=== PATIENT | male | born 1975 | race African-American/Black ===

== ENCOUNTER 2023-04-10 07:16 | Emergency (ER) | payer OTHER, SELFPAY ==
[2023-04-10 07:18] VITALS: BP 155/108
--- NOTE | 2023-04-10 07:48 | ED.GENMED ---
History of Present Illness
General
Chief Complaint: Musculo-Skeletal Complaint
Source: patient
Exam Limitations: none
Time Seen by Provider: 04/10/23 07:22
Nursing documentation reviewed up to this point in time: agreed with
Travel History
Have you had any contact with someone who has COVID-19?: No
Do you have any symptoms of coronavirus? Fever > 100 degrees, chills, cough, shortness of breath, sore throat, loss of taste or smell, muscle aches, or headache?: No
History of Present Illness
History of Present Illness:
Patient is a 47-year-old who presents today with complaints of right shoulder pain since . He was sleeping on the side and woke up with pain. Pain has been persistent since that he did go to urgent care and was given Medrol Dosepak and
sinus with calcific tendinitis but complains of persistent pain not being able to sleep was a prompted him to come to the ER.
Patient is right-hand dominant. 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 He denies any fever chills redness to the area. In addition to
Medrol Dosepak he has taken Tylenol for pain which is not relieving his symptoms.
Review of Systems
Review of Systems
Allergies reviewed?: Yes
Other source history: family
All Other Systems: ROS reviewed and negative except as documented in HPI and ROS
Constitutional: Reports no symptoms; Denies fever, fatigue or chills
Respiratory: Reports no symptoms
Cardiac: Reports no symptoms
ABD/GI: Reports no symptoms
Musculoskeletal: Reports other (right shoulder pain )
Skin: Reports no symptoms
Neurological: Reports no symptoms
Psychiatric: Reports no symptoms
Phy Exam
General Physical Exam
General Presentation: no apparent distress
General age: appears stated age
General Skin: warm and dry
General Habitus: normal
General Mental: alert
Neurological Exam
Neurological Exam: alert and oriented x3
Musculoskeletal Exam
Musculoskeletal Exam: other (normal inspection to right upper extremity no swelling or redness to shoulder pain with full abduction, strong distal pulses normal distal cap refill and normal diesel engine mechanic strength )
Course
Orders/Labs/Results
Orders:
Orders
04/10/23 07:47
Dexamethasone Sod Phosphate [Decadron] 10 mg IM NOW STA
Hydrocodone 5/APAP 325 [[place] 5/325] 1 tablet PO NOW STA
04/10/23 07:48
Shoulder, Right, Trauma [CR Shoulder, Trauma - Right] Urgent
Comment:
Reason For Exam: pain dec rom
04/10/23 08:02
Sling Right-Treatment ONCE
Vital Signs
Initial and Last Documented VS:
Initial Vital Signs
Temp Pulse Resp BP Pulse Ox
98.8 F 107 18 155/108 97
04/10/23 07:18 04/10/23 07:18 04/10/23 07:18 04/10/23 07:18 04/10/23 07:18
Last Documented Vital Signs
Temp Pulse Resp BP Pulse Ox
98.8 F 107 18 155/108 97
04/10/23 07:18 04/10/23 07:18 04/10/23 07:18 04/10/23 07:18 04/10/23 07:18
MDM/Problems Addressed
Differential Diagnosis Includes:
Not limited to calcific tendinitis rotator cuff injury sprain strain, labral tear
MDM/Problems Addressed:
X-ray done here consistent with calcific tendinitis also concern for labral pathology. Will DC with sling with Ortho follow-up. Patient has steroids from urgent care discussed with patient importance of continuing steroids however additional pain
medication was sent to pharmacy to take as needed. Patient was instructed to range his shoulder several times a day call orthopedics tomorrow return if any worsening of symptoms.
*Critical Care Note
Total Time (30-74mins, 75-104mins- exclusive of procedures): Not Applicable
ED Attending Note
-
Portions of this chart may have been created with voice recognition software.� Occasional wrong word or��sound alike� substitutions may have occurred due to the inherent limitations of voice recognition software.
Discharge Plan
Departure
Patient Disposition: Home (Routine Discharge)
Date of Disposition: 04/10/23
Time of Disposition: 08:57
Patient with high blood pressure during this ER visit?: Yes
Condition: Fair
Covid-19: Not Applicable
Discharge Problem:
Acute shoulder pain
Instructions: Shoulder Pain (DC), How to Use a Shoulder Sling, BLOOD PRESSURE
Prescriptions:
New
hydrocodone-acetaminophen 5-300 mg tablet
1 tab PO Q6H PRN (Reason: Pain) Qty: 10 0RF
Referrals:
Derik Mcdaniel MD [Family Provider] -
Ramez Hall MD [Active] -
Activity Restrictions/Additional Instructions:
As discussed a prescription for pain medication was sent to your pharmacy.
Continue to take steroids as previously prescribed discussed. You may wear sling for support but be sure to remove sling and do gentle range of motion exercises several times a day.
Call orthopedics tomorrow for an appointment next several days. It is likely that you may need additional imaging
return if any worsening of symptoms.
Interventions
Interventions:
*Risk Screen - Suicide Last Done: 04/10/23 08:08
*General Assessment Last Done: 04/10/23 08:07
*Neglect/Abuse Screening Last Done: 04/10/23 08:07
*ED COVID-19 Vaccine History Last Done: 04/10/23 07:18
ED-Musculoskeletal Assessment Last Done: 04/10/23 08:08
[2023-04-10] MEDS: NORCO 5/325 1 TABLET PO (08:03)
[2023-04-10] MEDS: DECADRON 10 MG IM (08:04)
== END 2023-04-10 10:15 | disposition home or self-care (01) ==
LOC: EMR 07:16
PROVIDERS: EMERGENCY PHYSICIAN Emergency Medicine; FAMILY PHYSICIAN Internal Medicine
DX: M25.511 Pain in right shoulder (principal)
CPT/HCPCS: 99283; 96372; 73030

== ENCOUNTER 2023-09-25 22:41 | Emergency (ER) | payer SELFPAY ==
[2023-09-25 22:44] VITALS: BP 166/104
--- NOTE | 2023-09-25 23:40 | ED.GENMED ---
History of Present Illness
General
Chief Complaint: Skin Surface Trauma
Source: patient
Exam Limitations: none
Time Seen by Provider: 09/25/23 23:23
History of Present Illness
History of Present Illness:
This is a 47 year old male that comes in with c/o right great toe nail coming of and a finger check. States that he went to as his finger was swollen States that they opened the base of his finger and he just wanted this checked. States that also
today he thinks his great toe on the right the nail came off. States that he had a hand truck come back on his toe about a month ago. Denies any fever, chills, chest pain, SOB, abd pain, nausea, vomiting, diarrhea, headache, dizziness, urinary
burning.
Past History
Past History
ED Past Medical History: Asthma, HTN and Other (pancreatitis)
ED Past Surgical History: Negative Appendectomy, Bowel resection, Cardiac or Cholecystectomy
Social History
Tobacco: Non-smoker
Alcohol: Occasional
Drug: None
Personal: Single
Living: alone
Employment: Employed
Review of Systems
Review of Systems
All Other Systems: ROS reviewed and negative except as documented in HPI and ROS
Constitutional: Reports no symptoms; Denies fever or chills
EENT: Reports no symptoms
Respiratory: Reports no symptoms; Denies cough or trouble breathing
Cardiac: Reports no symptoms; Denies chest pain
ABD/GI: Reports no symptoms; Denies abdominal pain, nausea, vomiting or diarrhea
: Reports no symptoms; Denies dysuria, frequency or urgency
Musculoskeletal: Reports other (left thumb check and right great toenail check)
Skin: Reports no symptoms
Neurological: Reports no symptoms; Denies dizzy or headache
Psychiatric: Reports no symptoms
Phy Exam
General Physical Exam
General Presentation: well appearing (Patient was sleeping upon entering the room. ) and no apparent distress
General age: appears stated age
General Skin: warm and dry
General Habitus: normal
General Mental: alert
General Hydration: appears well hydrated
Eye Exam
Eye Exam: EOMI
Musculoskeletal Exam
Musculoskeletal Exam: other (Left thumb wound clean and dry. No redness or swelling noted. Right great toe nail is holding on slightly. Will leave in place and have patient follow up with the Assistant Case Manager. )
Skin Exam
Skin Exam: normal color, warm/dry, no rash and no petechia
Psychiatric Exam
Psychiatric Exam: normal mood/affect
Course
Vital Signs
Initial and Last Documented VS:
Initial Vital Signs
Temp Pulse Resp BP Pulse Ox
97.8 F 90 18 166/104 98
09/25/23 22:44 09/25/23 22:44 09/25/23 22:44 09/25/23 22:44 09/25/23 22:44
Last Documented Vital Signs
Temp Pulse Resp BP Pulse Ox
97.8 F 90 18 166/104 98
09/25/23 22:44 09/25/23 22:44 09/25/23 22:44 09/25/23 22:44 09/25/23 22:44
MDM/Problems Addressed
Differential Diagnosis Includes:
Wound check, Great toenail falling off
MDM/Problems Addressed:
This is a 47 year old male that comes in with c/o his right great toe nail coming off and would a wound check on his left Thumb.
Explained to patient his Finger is not infected and this is healing. As for his toenail. Will attempt to leave what is remaining in place to help keep the nail bed open. Patient to follow up with the Pediatrist. Return with any concerns.
Chronic conditions affecting care:
NA
Acute Exacerbation and/or Progression of Chronic Illness:
NA
*Pulse Oximetry
Patient hypoxic: no
*EKG
Interpreted by ED Provider?: NA
Rate: EKG- N/A
*Conditioner Tumbler Operator Interpretation
Rate: Conditioner Tumbler Operator- N/A
*Critical Care Note
Total Time (30-74mins, 75-104mins- exclusive of procedures): Not Applicable
ED Attending Note
-
Portions of this chart may have been created with voice recognition software.� Occasional wrong word or��sound alike� substitutions may have occurred due to the inherent limitations of voice recognition software.
Discharge Plan
Departure
Disposition: Home (Routine Discharge)
Date of Disposition: 09/25/23
Time of Disposition: 23:56
Patient with high blood pressure during this ER visit?: Yes
Condition: Good
Covid-19: Not Applicable
Discharge Problem:
Visit for wound check, Toe nail falling off
Instructions: Wound Care (DC), Toe Injury (DC), BLOOD PRESSURE
Prescriptions:
No Action
lisinopril 10 mg Tablet
10 mg PO DAILY PRN (Reason: blood pressure)
Patient Comments:
04/11/2023, pt. does not take routinely.
ibuprofen 800 mg Tablet
800 mg PO BIDPRN PRN (Reason: mild pain)
acetaminophen 650 mg Tablet Extended Release
650 mg PO QIDPRN PRN (Reason: shoulder pain)
ergocalciferol (vitamin D2) 1,250 mcg (50,000 unit) Capsule
1,250 mcg PO QWEEK
Patient Comments:
04/11/2023, pt. states that they do not take this med. on one specific day each week.
Referrals:
Gregoria Angel DPM [Active] - Follow up in 2-3 days
Additional Instructions:
As discussed, your Finger is healing nicely. Please try and keep your toenail in place to help keep the nail bed open. Follow up with the Pediatrist for further evaluation. She may remove the nail if she feels that it is no longer protective. IF YOU
HAVE ANY OTHER CONCERNS PLEASE RETURN TO THE EMERGENCY ROOM.
Interventions
Interventions:
*Risk Screen - Suicide Last Done: 09/25/23 22:44
*General Assessment Last Done: 09/25/23 22:59
*Neglect/Abuse Screening Last Done: 09/25/23 22:44
ED- Fall Risk Assessment Last Done: 09/25/23 22:59
*ED COVID-19 Vaccine History Last Done: 09/25/23 22:59
ED-Skin Assessment Last Done: 09/25/23 22:59
Discharge Date and Time
Print Language: MONEGASQUE
== END 2023-09-26 00:16 | disposition home or self-care (01) ==
LOC: EMR 22:41
PROVIDERS: EMERGENCY PHYSICIAN Emergency Medicine; FAMILY PHYSICIAN Internal Medicine
DX: Z48.00 Encounter for change or removal of nonsurgical wound dressing (principal); S99.921A Unspecified injury of right foot, initial encounter; X58.XXXA Exposure to other specified factors, initial encounter; J45.909 Unspecified asthma, uncomplicated; I10 Essential (primary) hypertension; Z90.49 Acquired absence of other specified parts of digestive tract
CPT/HCPCS: 99282